=== PATIENT | male | born 1990 | race African-American/Black ===

== ENCOUNTER 2019-04-06 21:33 | Emergency (ER) | payer OTHER ==
[~2019-04-06] VITALS: Ht 177.8 cm; Wt 117.9 kg
[2019-04-06 22:05] LABS: URINE BILIRUBIN NEGATIVE (Negative); URINE BLOOD 3+ (Negative); URINE CLARITY CLEAR; URINE COLOR YELLOW; URINE GLUCOSE-RANDOM* NEGATIVE (Negative); URINE KETONES NEGATIVE (Negative); URINE LEUKOCYTES-REFLEX 3+ (Negative); URINE NITRITE-REFLEX NEGATIVE (Negative); URINE PROTEIN (DIPSTICK) TRACE (Negative); URINE SPECIFIC GRAVITY 1.015 (1.005-1.035); URINE UROBILINOGEN 0.2 E.U./dl (0.2-1.0)
[2019-04-06 22:14] LABS: BACTERIA-REFLEX 1-9 Few /HPF (None Seen); CASTS None Seen /LPF (None Seen); CRYSTALS None Seen /LPF (None Seen); SQUAMOUS None Seen /LPF (0-3); URINE RBC 3-10 Few /HPF (0-2)
[2019-04-06 23:00] LABS: ABSOLUTE NEUTROPHILS 9.5 thou/uL (1.4-8.2); BASOPHILS 0.5 % (0.0-2.0); EOSINOPHILS 1.4 % (0.0-3.0); HEMATOCRIT 44.4 % (42.0-52.0); HEMOGLOBIN 14.8 gm/dL (14.0-18.0); LYMPHOCYTES 19.1 % (24.0-44.0); MCH 29.2 pg (26.0-34.0); MCHC 33.3 g/dL (28.0-37.0); MCV 87.5 fL (80.0-100.0); MONOCYTES 6.5 % (1.0-8.0); PLATELET COUNT 209 thou/uL (150-400); POLYS 72.5 % (36.0-66.0); RBC 5.07 mil/uL (4.50-6.00); RDW 12.8 % (10.5-14.5); WBC 13.2 thou/uL (4.0-11.0)
[2019-04-06 23:07] LABS: CALCIUM 9.4 mg/dL (8.5-10.1)
[2019-04-06] MEDS ORDERED: KEFLEX500 M1 PO (23:30)
[2019-04-07] VITALS: BP 112/49
== END 2019-04-06 23:50 | disposition home or self-care (01) ==
LOC: ER 21:33
PROVIDERS: Emergency Medicine
DX: N39.0 Urinary tract infection, site not specified (principal); F17.210 Nicotine dependence, cigarettes, uncomplicated